=== PATIENT | female | born 1970 | race Caucasian/White ===

== ENCOUNTER 2017-06-02 22:39 | Emergency (ER) | payer SELFPAY ==
[~2017-06-02] VITALS: Ht 160 cm; Wt 70.2 kg
[2017-06-02 22:45] VITALS: BP 132/73; PULSE 57; RESP 14; TEMP 97.8; O2SAT 99
[2017-06-02] MEDS ORDERED: PROPARACAINE HCL 0.5% OPHT SOLN 15 ML BTL EACH EYE ONE (23:15)
[2017-06-02] MEDS ORDERED: POLY10O RIGHT EYE (23:31)
--- NOTE | 2017-06-02 23:32 | PD ---
HPI Chief Complaint: Eye Problems/Injury Time Seen by Provider: 23:11 Travel History International Travel<30 days: No Contact w/Intl Traveler<30days: No Traveled to known affect area: No History of Present Illness HPI 46 years old female complains of right eye irritation. Patient is a contact lens wearer. Patient states that she was feeling a foreign body on the upper eyelid this afternoon. Patient has pain and tearing from the right eye. Patient has been rubbing on the right eye. Patient denies any direct injury to the right eye. PFSH Social History Tobacco Use: No Allergies-Medications (Allergen,Severity, Reaction): Coded Allergies: No Known Allergies (Unverified , 06/02/17) Reported Meds & Prescriptions Reported Meds & Active Scripts Active Polytrim Opth Drops (Polymyxin/Trimethoprim Sulfate) 10,000-0.1 Unit/Ml-% Soln 1 Drop RIGHT EYE Q6HR Review of Systems General / Constitutional: No: Fever Eyes: Positive: Foreign Body Sensation, Pain, Tearing, No: Visual changes HENT: No: Headaches Cardiovascular: No: Chest Pain or Discomfort Respiratory: No: Shortness of Breath Gastrointestinal: No: Abdominal Pain Genitourinary: No: Dysuria Musculoskeletal: No: Pain Skin: No Rash Neurologic: No: Weakness Psychiatric: No: Depression Endocrine: No: Polydipsia Hematologic/Lymphatic: No: Easy Bruising Physical Exam Narrative GENERAL: Well-nourished, well-developed patient. SKIN: Focused skin assessment warm/dry. HEAD: Normocephalic. EYES: Mild right conjunctival erythematous. Pupils 2 mm equal reactive. No photophobia right eye. Right eye stained with fluorescein stain shows small foreign body near the edge of the right upper eyelid. Foreign body was removed with a Q tip. Reexamination no evidence of persistent foreign body. No uptake of the cornea. NECK: Supple, trachea midline. No JVD or lymphadenopathy. CARDIOVASCULAR: Regular rate and rhythm without murmurs, gallops, or rubs. RESPIRATORY: Breath sounds equal bilaterally. No accessory muscle use. GASTROINTESTINAL: Abdomen soft, non-tender, nondistended. MUSCULOSKELETAL: No cyanosis, or edema. BACK: Nontender without obvious deformity. No CVA tenderness. Data Data Last Documented VS Vital Signs Date Time Temp Pulse Resp B/P Pulse Ox O2 Delivery O2 Flow Rate FiO2 06/02/17 23:41 77 16 127/86 98 06/02/17 22:45 97.8 Orders Proparacaine 0.5% Opth Soln (Alcaine 0.5 (06/02/17 23:15) [facility] Medical Decision Making Medical Screen Exam Complete: Yes Emergency Medical Condition: Yes Differential Diagnosis Differential diagnosis including foreign body, corneal abrasion, corneal ulcer. Narrative Course 46 years old female with irritation from foreign body. Procedures Procedure Narrative Proparacaine eyedrop applied to right eye. Right eyes stained with fluoresceins stain shows small foreign body on the upper eyelid. Foreign body was removed with a Q-tip. Right eyes was irrigated with saline solution. Diagnosis Primary Impression: Foreign body of right eye Qualified Code: T15.91XA - Foreign body of right eye, initial encounter Additional Instructions: Polytrim ophthalmic solution as directed. Follow-up with personal physician and private tutor if persistent problem. Return if worse. Med/Other Pt SpecificInfo: Prescription(s) given Scripts Polymyxin B-Trimethoprim Opth Drops (Polytrim Opth Drops)10,000-0.1 Unit/Ml-% Soln1 Drop RIGHT EYE Q6HR #1 BOTTLE Ref 0 Prov:Vicente Dawson MD 06/02/17 Disposition: 01 DISCHARGE HOME Condition: Stable Vicente Dawson MD Jun 02, 2017 23:32
[2017-06-02 23:41] VITALS: BP 127/86
== END 2017-06-02 23:41 | disposition home or self-care (01) ==
LOC: PHED 22:39
DX: T15.91XA Foreign body on external eye, part unspecified, right eye, initial encounter (principal); X58.XXXA Exposure to other specified factors, initial encounter
CPT/HCPCS: 65205